=== PATIENT | female | born 1950 | race Caucasian/White ===

== ENCOUNTER 2016-05-16 06:07 | Day surgery (SDC) | payer MEDICARE, OTHER ==
[2016-05-15 16:57] LABS: INR 1.08 (0.9-1.15); Prothrombin Time 11.1 sec (9.37-12.3)
[2016-05-15 17:05] LABS: Albumin 4.1 g/dL (3.4-5.0); BUN/Creatinine Ratio 19.8; Calcium 9.3 mg/dL (8.5-10.1); Potassium 3.3 mmol/L (3.5-5.1)
[2016-05-15 17:09] LABS: Bilirubin, Total 0.7 mg/dL (0.2-1.0); Total Protein 8.6 g/dL (6.4-8.2)
[2016-05-15 17:17] LABS: Basophils # (auto) 0 uL; Basophils % (auto) 0.5 % (0.0-2.0); Eosinophils # (auto) 0.3 uL; Eosinophils % (auto) 3.4 % (0.0-7.0); Lymphocytes # (auto) 2.1 uL; Lymphocytes % (auto) 27.8 % (10.0-50.0); Mean Corpuscular Hemoglobin 31.4 pg (28.0-32.0); Mean Corpuscular Hgb Conc. 32.6 g/dL (32.0-36.0); Mean Corpuscular Volume 96.5 fL (80.0-100.0); Mean Platelet Volume 9.9 fL (7.4-10.4); Monocytes # (auto) 0.7 uL; Monocytes % (auto) 9.6 % (0.0-12.0); Neutrophils # (auto) 4.4 uL; Neutrophils % (auto) 58.7 % (37.0-80.0); Platelet Count (auto) 267 10^3/uL (140-450); Red Cell Distribution Width 13.6 % (11.6-16.0); White Blood Cell 7.4 10^3/uL (4.4-10.8)
[~2016-05-16] VITALS: Ht 165.1 cm; Wt 71.2 kg
[~2016-05-16 06:07] MED LIST: ATEN-60 OR; ATOR40TA52 PO; CHOL20002 PO; FURO40TA4 PO; GABA300C8 PO; LEV100T PO; LIOT5TAB PO; LOSA25TA9 PO; MAGNTAB23 OR; MULT-551 OR; OMEG100078 PO; POTA20TA53 PO; POTA99TA13 PO; SOTA80TA PO; ZINC50TA27 PO
[2016-05-16] MEDS ORDERED: ceFAZolin 1GM/50ML D5W 50 ML IV ONE (07:12)
[2016-05-16] MEDS ORDERED: PROPOFOL 10 MG/ML 20 ML IV ONE (08:07)
[2016-05-16] MEDS ORDERED: SODIUM CHLORIDE LOCK 20 ML ONE (08:07)
[2016-05-16] MEDS ORDERED: fentaNYL CITRATE 100 MCG/2 ML VL ONE (08:07)
[2016-05-16] MEDS ORDERED: ONDANSETRON HCL 4 MG/2 ML VIAL ONE (08:07)
[2016-05-16] MEDS ORDERED: MIDAZOLAM HCL 1MG/1ML-2 ML VIAL ONE (08:07)
[2016-05-16] MEDS ORDERED: BUPIVACAINE 0.75% INJ 10ML MPV SDV IJ ONE (08:38)
[2016-05-16] MEDS ORDERED: ceFAZolin 1GM VL ONE (08:38)
[2016-05-16] MEDS ORDERED: BUPIVACAINE 0.75% INJ 30ML MPF VIAL IJ ONE (09:13)
[2016-05-16 10:25] VITALS: BP 147/61
== END 2016-05-16 10:35 | disposition home or self-care (01) ==
LOC: SUR 06:07
PROVIDERS: ATTEND Podiatrist Foot & Ankle Surgery
DX: M20.41 Other hammer toe(s) (acquired), right foot (principal); I20.9 Angina pectoris, unspecified; Z95.0 Presence of cardiac pacemaker; J45.909 Unspecified asthma, uncomplicated; Z90.710 Acquired absence of both cervix and uterus; Z87.891 Personal history of nicotine dependence; E78.00 Pure hypercholesterolemia, unspecified; J44.9 Chronic obstructive pulmonary disease, unspecified; A15.9 Respiratory tuberculosis unspecified; E05.90 Thyrotoxicosis, unspecified without thyrotoxic crisis or storm; I25.10 Atherosclerotic heart disease of native coronary artery without angina pectoris; I50.9 Heart failure, unspecified; I10 Essential (primary) hypertension; M19.90 Unspecified osteoarthritis, unspecified site; E11.9 Type 2 diabetes mellitus without complications
CPT/HCPCS: 28285; 28292; 36415; 80053; 85025; 85049; 85610; 85730; J0690; J2250; J2405; J2704; J3010; J3490; Q4137

== ENCOUNTER → 2016-07-16 | Day surgery (SDC) | payer MEDICARE, OTHER ==
[~2016-07-16] VITALS: Ht 165.1 cm; Wt 73.0 kg
[~2016-07-16] MED LIST changes: +BACITRACIN INJ 50000 UNIT VIAL ONE; +DOXYCYCLINE 100 MG TAB/CAP PO ONE; +HYDROcodone-ACET 5/325MG TAB PO PRN; -LEV100T PO; +LEVO88TA4 PO; +LIDOCAINE 2%HCL (LOCAL ANESTH.) INJ 20ML MDV ONE; +MIDAZOLAM HCL 1MG/1ML-2 ML VIAL ONE; -POTA20TA53 PO; +VANCOMYCIN 1GM/250ML D5W 250 ML IV ONE; +VANCOMYCIN HCL 1000 MG VL ONE; +fentaNYL CITRATE 100 MCG/2 ML VL ONE
== END | disposition home or self-care (01) ==
LOC: CATH 06:56
PROVIDERS: ATTEND Specialist
DX: I50.9 Heart failure, unspecified (principal); I47.0 Re-entry ventricular arrhythmia; I20.9 Angina pectoris, unspecified; Z90.710 Acquired absence of both cervix and uterus; Z87.891 Personal history of nicotine dependence; F10.99 Alcohol use, unspecified with unspecified alcohol-induced disorder; C50.919 Malignant neoplasm of unspecified site of unspecified female breast
CPT/HCPCS: 33228; J2250; J3010; J3370; J7030; 99152

== ENCOUNTER 2016-08-22 07:09 | Observation (INO) | payer MEDICARE ==
[~2016-08-22] VITALS: Ht 165.1 cm; Wt 71.2 kg
[~2016-08-22 07:09] MED LIST changes: -BACITRACIN INJ 50000 UNIT VIAL ONE; -DOXYCYCLINE 100 MG TAB/CAP PO ONE; -HYDROcodone-ACET 5/325MG TAB PO PRN; -LIDOCAINE 2%HCL (LOCAL ANESTH.) INJ 20ML MDV ONE; -MIDAZOLAM HCL 1MG/1ML-2 ML VIAL ONE; -VANCOMYCIN 1GM/250ML D5W 250 ML IV ONE; -VANCOMYCIN HCL 1000 MG VL ONE; -fentaNYL CITRATE 100 MCG/2 ML VL ONE
[2016-08-22 08:04] LABS: Basophils # (auto) 0 uL; Basophils % (auto) 0.1 % (0.0-2.0); Eosinophils # (auto) 0.2 uL; Eosinophils % (auto) 1.7 % (0.0-7.0); Hematocrit 35.8 % (36.0-46.0); Hemoglobin 11.8 g/dL (12.2-16.2); Lymphocytes # (auto) 0.6 uL; Lymphocytes % (auto) 6.1 % (10.0-50.0); Mean Corpuscular Hemoglobin 32.1 pg (28.0-32.0); Mean Corpuscular Volume 97.5 fL (80.0-100.0); Mean Platelet Volume 8.5 fL (7.4-10.4); Monocytes # (auto) 0.4 uL; Monocytes % (auto) 4.7 % (0.0-12.0); Neutrophils # (auto) 7.9 uL; Neutrophils % (auto) 87.4 % (37.0-80.0); Platelet Count (auto) 216 10^3/uL (140-450); Red Cell Distribution Width 14.5 % (11.6-16.0); White Blood Cell 9.1 10^3/uL (4.4-10.8)
[2016-08-22 08:46] LABS: Albumin 3.6 g/dL (3.4-5.0); Bilirubin, Total 1.1 mg/dL (0.2-1.0); Potassium 3.7 mmol/L (3.5-5.1)
[2016-08-22] MEDS ORDERED: SODIUM CHLORIDE 0.9% 250 ML IV ONE (08:51)
[2016-08-22] MEDS ORDERED: ALBUTEROL SULF 2.5 MG/0.5ML(0.5%) NEB SOLN NEB ONE (09:00)
[2016-08-22] MEDS ORDERED: cefTRIAXone 1GM/50ML D5W 50 ML IV ONE (09:00)
[2016-08-22] MEDS ORDERED: methylPREDNISolone SOD SUCC 125 MG/2 ML VL IV ONE (09:00)
[2016-08-22] MEDS ORDERED: IPRATROPIUM BROM 0.5 MG/2.5ML INH SOL NEB ONE (09:00)
[2016-08-22 09:37] VITALS: BP 131/68
[2016-08-22 13:59] LABS: Urine Bilirubin Negative (Negative); Urine Blood TRACE /uL (Negative); Urine Color Yellow (Yellow); Urine Glucose Normal (Normal); Urine Ketone Negative (Negative); Urine Nitrite Negative (Negative); Urine RBC 5 /hpf (0 - 4); Urine Squamous Epithelial Cell FEW /hpf (<5); Urine pH 6.5 (5.0-8.0)
== END 2016-08-22 12:30 | disposition home or self-care (01) | DRG 192 ==
LOC: ER 07:09 → OVERFLOW 08:53
PROVIDERS: ADMIT Emergency Medicine; ATTEND Emergency Medicine
DX: J44.1 Chronic obstructive pulmonary disease with (acute) exacerbation (principal); E03.9 Hypothyroidism, unspecified; I10 Essential (primary) hypertension
CPT/HCPCS: 36415; 71020; 80053; 81001; 83735; 84484; 85025; 87040; 93005; 94640; 96365; 96366; 96375; 99285; G0378; J0696; J2930